=== PATIENT | male | born 1955 | race Caucasian/White ===

== ENCOUNTER 2018-09-06 05:15 | Inpatient (IN) | payer OTHER ==
[2018-08-28 12:34] LABS: BASOPHILS # (AUTO) 0.1 X10'3 (0-0.2); BASOPHILS % (AUTO) 0.8 % (0-1); EOSINOPHILS # (AUTO) 0.4 X10'3 (0-0.9); EOSINOPHILS % (AUTO) 3.8 % (0-6); LYMPHOCYTES # (AUTO) 1.3 X10'3 (1.1-4.8); LYMPHOCYTES % (AUTO) 13.2 % (21-51); MEAN CORPUSCULAR HGB CONC 33.9 g/dL (33.0-36.5); MEAN CORPUSCULAR VOLUME 85.7 FL (78-98); MEAN PLATELET VOLUME 8.4 FL (7.4-10.4); MONOCYTES # (AUTO) 1.1 X10'3 (0-0.9); MONOCYTES % (AUTO) 10.9 % (2-12); NEUTROPHILS # (AUTO) 6.9 X10'3 (1.8-7.7); NEUTROPHILS % (AUTO) 71.3 % (42-75); PRE OP HEMATOCRIT 43.2 % (42.0-52.0); PRE OP HEMOGLOBIN 14.6 g/dL (14.0-17.9); PRE OP PLATELET COUNT 236 X10'3 (140-440); RED BLOOD COUNT 5.04 X10'6 (4.70-6.10); RED CELL DISTRIBUTION WIDTH 13.7 % (11.5-14.5)
[2018-08-28 13:05] LABS: ALBUMIN 3.7 G/DL (3.4-5.0); ALKALINE PHOSPHATASE 81 IU/L (46-116); BLOOD UREA NITROGEN 14 MG/DL (7-18); BUN/CREATININE RATIO 17.9 (5.4-32.0); CHLORIDE 106 MMOL/L (99-107); CREATININE 0.78 MG/DL (0.60-1.10); PRE OP ALT 29 U/L (30-65); PRE OP ANION GAP 7 (8-16); PRE OP AST 13 U/L (10-37); PRE OP BILIRUB, TOTAL 0.3 MG/DL (0.0-1.0); PRE OP GLUCOSE 84 MG/DL (70-104); PRE OP POTASSIUM 3.6 MMOL/L (3.4-5.1); PRE OP SODIUM 140 MMOL/L (135-145); TOTAL CARBON DIOXIDE 27.4 MMOL/L (24-32); TOTAL PROTEIN 7.4 G/DL (6.4-8.2); eGFR > 90 ML/MIN
[~2018-09-06] VITALS: Ht 167.6 cm; Wt 94.8 kg
[2018-09-06] VITALS (21 sets, daily range): BP systolic 102–131; BP diastolic 43–80
[~2018-09-06 05:15] MED LIST: ALBU18HF2 INH; BUDE10.2 INH; HYDR-3972 PO; IPRA3AMP31 IH; ringers solution, lacted 1,000 ML IV SCH
[2018-09-06] MEDS ORDERED: famotidine 20mg tablet PO ONE (05:30)
[2018-09-06] MEDS ORDERED: albuterol 2.5 MG/3 ML nebule NEB ONE ×2 (05:30→10:35)
[2018-09-06] MEDS ORDERED: cefazolin/dext.iso 2gm/100 ML IV ONE (05:30)
[2018-09-06] MEDS ORDERED: VANCOMYCIN 1,500MG inj. 1,500 MG in normal saline 250ml IV soln 280 ML IV ONE (05:30)
[2018-09-06] MEDS ORDERED: LIDOcaine 1% (10mg/ml) 2ml vial ONE (05:57)
[2018-09-06] MEDS ORDERED: ketorolac trometh. 30mg/ml inj. ONE (07:00)
[2018-09-06] MEDS ORDERED: ROPIVAcaine 0.5% (5mg/ml) 30ml vial ONE ×2 (07:01→07:08)
[2018-09-06] MEDS ORDERED: cloNIDine hcl/PF 100mcg/ml inj ONE (07:09)
[2018-09-06] MEDS ORDERED: fentaNYL/PF 50MCG/1 ML 2ML syringe ONE (07:12)
[2018-09-06] MEDS ORDERED: MIDAZolam 5mg/5ml vial ONE (07:12)
[2018-09-06] MEDS ORDERED: succinylcholine 20mg/ml inj IV ONE (07:14)
[2018-09-06] MEDS ORDERED: propofol inj 20 ML IV ONE (07:14)
[2018-09-06] MEDS ORDERED: LIDOcaine 2% (20mg/ml) 5ml vial ONE (07:14)
[2018-09-06] MEDS ORDERED: dexamethasone sod phosphate 4mg/ml inj. ONE (07:14)
[2018-09-06] MEDS ORDERED: sevoflurane 250ml liquid IH ONE (07:16)
[2018-09-06] MEDS ORDERED: tranexamic acid inj. 1,000 MG in normal saline 100ml IV soln 100 ML IV ONE ×3 (07:30→14:00)
[2018-09-06] MEDS ORDERED: ringers solution, lacted 1,000 ML IV SCH (08:26)
[2018-09-06] MEDS ORDERED: labetalol 20mg/4ml (5mg/ml) syringe IV PRN (08:30)
[2018-09-06] MEDS ORDERED: hydrALAZINE 20mg/ml inj. IV PRN (08:30)
[2018-09-06] MEDS ORDERED: morphine 4 MG/ML inj SYRINge IV PRN ×2 (08:30)
[2018-09-06] MEDS ORDERED: ondansetron/PF 4mg/2ml inj IV PRN ×2 (08:30→10:35)
[2018-09-06] MEDS ORDERED: fentaNYL/PF 50MCG/1 ML 2ML syringe IV PRN ×2 (08:30)
[2018-09-06] MEDS ORDERED: ondansetron/PF 4mg/2ml inj ONE (09:17)
[2018-09-06 09:32] LABS: COLOR,SYNOVIAL FLUID YELLOW
[2018-09-06 09:33] LABS: APPEARANCE,SYNOVIAL FLUID CLOUDY; LYMPHOCYTES,SYNOVIAL FLUID 74 % (0-75); MONOCYTES,SYNOVIAL FLUID 22 % (0-0); NEUTROPHILS,SYNOVIAL FLUID 4 % (0-25); SYN RBC 4200 /CU MM (0); SYN WBC 225 /CU MM (0-200)
--- NOTE | 2018-09-06 10:09 | NUR ---
Received from OR via , accompanied by Anesthesiologist DR HARDING and report given by Anesthesiolgist. AWAKENS TO VOICE. VITALS STABLE. DRESSING DI. ANÍBAL PAIN. FINGERS WARM AND PINK. DECREASED SENSATION TO RUE. SLING TO RUE.
[2018-09-06] MEDS ORDERED: magnesium hydroxide 30ml (MOM) UD suspension PO PRN (10:35)
[2018-09-06] MEDS ORDERED: ipratropium/albuterol 3ml nebule IH PRN (10:35)
[2018-09-06] MEDS ORDERED: acetaminophen 325mg tablet PO PRN (10:35)
[2018-09-06] MEDS ORDERED: HYDROmorphone inj. 0.5 MG/0.5 ML DISP.SYRIN IV PRN (10:35)
[2018-09-06] MEDS ORDERED: oxyCODONE IR 5mg (immed. release) tablet PO PRN (10:35)
[2018-09-06] MEDS ORDERED: diphenhydrAMINE 25mg capsule PO PRN ×2 (10:35)
[2018-09-06] MEDS ORDERED: bisacodyl 10mg suppository rectal RC PRN (10:35)
[2018-09-06] MEDS ORDERED: albuterol 2.5 MG/3 ML nebule NEB PRN (10:35)
[2018-09-06] MEDS ORDERED: HYDROmorphone 1 mg/ml syringe IV PRN (10:35)
[2018-09-06] MEDS ORDERED: albuterol 2.5 MG/3 ML nebule ONE (10:37)
[2018-09-06] MEDS: ROPIVAcaine 0.2%/PF PAIN PUMP 550 ML IJ SCH ×3 (10:51→23:51)
--- NOTE | 2018-09-06 10:54 | NUR ---
PT C/O PAIN TO BILAT CALFS. WORSE WHEN FLEXING ANKLES. REPORTED TO MD WITH NO ORDERS RECEIVED.
--- NOTE | 2018-09-06 11:29 | NUR ---
Report called to receiving nurse. Transferred via [facility] Belongings . Special Issues communicated to receiving nurse. AWAKE AND ORIENTED. VITALS STABLE. DRESSING DI. CONTINUES TO C/O CALF DISCOMFORT. MD IS AWARE. TO ORTHO RM [id number] AT THIS TIME.
[2018-09-06] MEDS: albuterol 2.5 MG/3 ML nebule NEB SCH ×2 (13:42→22:30)
[2018-09-06] MEDS: acetaminophen 325mg tablet PO SCH ×2 (14:02→20:25)
[2018-09-06] MEDS: ketorolac tromethamine 15mg/ml inj. IV SCH ×2 (14:02→20:24)
[2018-09-06] MEDS: potassium cl 20mEq in 1/2 NS 1,000 ML IV SCH ×2 (14:03→18:31)
[2018-09-06] MEDS: ceFAZolin 1GM/D5W- ADD-VANTAGE 50 ML IV SCH ×2 (16:41→23:51)
--- NOTE | 2018-09-06 18:15 | NUR ---
Patient in room ORTHO 4023. I have received report from BART Ponce and had the opportunity to ask questions and assume patient care.
[2018-09-06] MEDS: DOXYCYCLINE 100MG CAPSULE PO SCH (18:23)
[2018-09-06] MEDS ORDERED: albuterol 2.5 MG/3 ML nebule NEB SCH (18:38)
[2018-09-06] MEDS ORDERED: non-formulary drug (Budesonide/Formoterol Fumarate (Symbicort 160-4.5 Mcg Inhaler) 2 PUFFS INH SCH (20:00)
[2018-09-06] MEDS ORDERED: vancomycin/NS 1 GM ADD-VANTAGE 250 ML IV SCH (20:00)
[2018-09-06] MEDS: oxyCODONE IR 5mg (immed. release) tablet PO PRN (20:24)
[2018-09-06] MEDS ORDERED: sennosides 8.6mg tablet PO SCH (21:00)
[2018-09-06] MEDS: budesonide 0.5mg/2ml UD nebule IH SCH (22:25)
[2018-09-07] MEDS: oxyCODONE IR 5mg (immed. release) tablet PO PRN ×3 (00:29→09:44)
[2018-09-07] MEDS: potassium cl 20mEq in 1/2 NS 1,000 ML IV SCH (01:11)
[2018-09-07] MEDS: ketorolac tromethamine 15mg/ml inj. IV SCH ×2 (01:50→09:40)
[2018-09-07] MEDS: acetaminophen 325mg tablet PO SCH ×2 (01:50→09:40)
[2018-09-07 02:00] VITALS: BP 103/52
[2018-09-07] MEDS: ROPIVAcaine 0.2%/PF PAIN PUMP 550 ML IJ SCH (02:17)
[2018-09-07] MEDS: albuterol 2.5 MG/3 ML nebule NEB SCH ×2 (02:48→08:32)
[2018-09-07 03:30] VITALS: BP 106/58
[2018-09-07 06:00] VITALS: BP 117/53
--- NOTE | 2018-09-07 06:37 | NUR ---
Problems reprioritized. Patient report given, questions answered & plan of care reviewed with BART Ponce.
[2018-09-07 07:50] LABS: ANION GAP 7 (8-16); CHLORIDE 106 MMOL/L (99-107); POTASSIUM 4.3 MMOL/L (3.5-5.1); SODIUM 136 MMOL/L (135-145); TOTAL CARBON DIOXIDE 23.2 MMOL/L (24-32)
[2018-09-07 08:09] LABS: BASOPHILS # (AUTO) 0.1 X10'3 (0-0.2); BASOPHILS % (AUTO) 0.4 % (0-1); EOSINOPHILS % (AUTO) 0.3 % (0-6); HEMATOCRIT 37.4 % (42.0-52.0); HEMOGLOBIN 12.7 g/dl (14.0-17.9); LYMPHOCYTES # (AUTO) 1.2 X10'3 (1.1-4.8); LYMPHOCYTES % (AUTO) 8.7 % (21-51); MEAN CORPUSCULAR HEMOGLOBIN 29.3 PG (27.0-31.0); MEAN CORPUSCULAR HGB CONC 33.9 g/dL (33.0-36.5); MEAN CORPUSCULAR VOLUME 86.5 FL (78-98); MEAN PLATELET VOLUME 8.7 FL (7.4-10.4); MONOCYTES # (AUTO) 1.1 X10'3 (0-0.9); MONOCYTES % (AUTO) 7.8 % (2-12); NEUTROPHILS # (AUTO) 11.6 X10'3 (1.8-7.7); NEUTROPHILS % (AUTO) 82.8 % (42-75); PLATELET COUNT 193 X10'3 (140-440); RED BLOOD COUNT 4.32 X10'6 (4.70-6.10); RED CELL DISTRIBUTION WIDTH 13.5 % (11.5-14.5)
[2018-09-07] MEDS ORDERED: aspirin 325mg tablet PO SCH (08:30)
[2018-09-07] MEDS: budesonide 0.5mg/2ml UD nebule IH SCH (08:32)
[2018-09-07] MEDS: DOXYCYCLINE 100MG CAPSULE PO SCH (09:40)
[2018-09-07 10:00] VITALS: BP 135/68
[2018-09-07] MEDS ORDERED: celeCOXIB 100mg capsule PO SCH (20:00)
[2018-09-08] MEDS ORDERED: acetaminophen 325mg tablet PO PRN (10:35)
== END 2018-09-07 12:28 | disposition home or self-care (01) | DRG 483 ==
LOC: PAS IN 05:15 → EDSTATUS 11:15 → ORTHO 4S 11:40
PROVIDERS: ADMIT Orthopaedic Surgery; ATTEND Orthopaedic Surgery
PROC: 0RPJ0JZ Removal of Synthetic Substitute from Right Shoulder Joint, Open Approach (ICD-10-PCS; 2018-09-06)
PROC: 0LS30ZZ Reposition Right Upper Arm Tendon, Open Approach (ICD-10-PCS; 2018-09-06)
PROC: 3E0T3BZ Introduction of Anesthetic Agent into Peripheral Nerves and Plexi, Percutaneous Approach (ICD-10-PCS; 2018-09-06)
PROC: 0RRJ00Z Replacement of Right Shoulder Joint with Reverse Ball and Socket Synthetic Substitute, Open Approach (ICD-10-PCS; principal; 2018-09-06 07:16)
DX: T84.018A Broken internal joint prosthesis, other site, initial encounter (principal); D62 Acute posthemorrhagic anemia; M75.121 Complete rotator cuff tear or rupture of right shoulder, not specified as traumatic; M75.01 Adhesive capsulitis of right shoulder; Z96.611 Presence of right artificial shoulder joint; J44.9 Chronic obstructive pulmonary disease, unspecified; Y83.8 Other surgical procedures as the cause of abnormal reaction of the patient, or of later complication, without mention of misadventure at the time of the procedure; M25.511 Pain in right shoulder; G89.29 Other chronic pain; E66.9 Obesity, unspecified; Z68.33 Body mass index [BMI] 33.0-33.9, adult; Z87.891 Personal history of nicotine dependence; Z80.3 Family history of malignant neoplasm of breast; Z80.0 Family history of malignant neoplasm of digestive organs; Y92.89 Other specified places as the place of occurrence of the external cause; Z79.899 Other long term (current) drug therapy
CPT/HCPCS: 36415; 80051; 80053; 82948; 85025; 87070; 87075; 87176; 89051; 94640; 94760; 97110; 97116; 97161; A4565; A7000; G0378; J0330; J0690; J0735; J1100; J1885; J2001; J2250; J2405; J2704; J2795; J3010; J3370; J3490; J7030; J7040; J7120; J7626; Q0163

== ENCOUNTER 2024-04-29 10:24 | Outpatient (CLI) | payer MEDICARE ==
[~2024-04-29 10:24] MED LIST changes: +ASPI-611 PO; -BUDE10.2 INH; +CLOP75TA34 PO; +FLUT16SP26 NAS; +GABA300C PO; +HYDR-3973 PO; +LATA2.5D14 EACHEYE; +LOP25T PO; +SULF1TAB49 PO; +TIZA-205 PO; -ringers solution, lacted 1,000 ML IV SCH
== END 2024-04-29 23:59 | disposition home or self-care (01) ==
LOC: VAS 10:24
PROVIDERS: ATTEND Thoracic Surgery (Cardiothoracic Vascular Surgery)
DX: R22.41 Localized swelling, mass and lump, right lower limb (principal); M79.661 Pain in right lower leg
CPT/HCPCS: 93971